=== PATIENT | female | born 1980 | race Two or more races ===

== ENCOUNTER 2016-05-01 20:11 | Emergency (ER) | payer MEDICAID ==
[~2016-05-01] VITALS: Ht 142.2 cm; Wt 45.4 kg
[2016-05-01] MEDS ORDERED: IV NS 0.9% 1,000 ML BAG IV ONE (21:00)
[2016-05-01] MEDS ORDERED: IV NS 0.9% 1,000 ML ONE (21:06)
[2016-05-01] MEDS ORDERED: IV SET PRIMARY 1 EA INFUS.SET MC ONE (21:06)
[2016-05-01 21:21] LABS: ANION GAP 15 (5-14); CALCIUM, SERUM 7.8 mg/dL (8.5-10.1); CARBON DIOXIDE 24 mmol/L (21-32); CHLORIDE 106 mmol/L (98-107); CREATININE 0.5 mg/dL (0.6-1.3); GFR 140 mL/min (>60); GLUCOSE 92 mg/dL (74-106); POTASSIUM 3.2 mmol/L (3.5-5.1); SODIUM SERUM 142 mmol/L (136-145); UREA NITROGEN, BLOOD 7 mg/dL (7-18)
[2016-05-01 21:24] LABS: INR 1.01 (0.87-1.13); PROTHROMBIN TIME 10.6 SECS (9.5-12.7)
[2016-05-01 21:28] LABS: ALANINE AMINOTRANSFERASE 53 U/L (12-78); ALBUMIN 3.4 g/dL (3.4-5.0); ASPARTATE AMINOTRANSFERASE 65 U/L (15-37); BILIRUBIN,DIRECT 0.2 mg/dL (0.0-0.2); BILIRUBIN,TOTAL 0.4 mg/dL (0.2-1.0); INDIRECT BILIRUBIN 0.2 mg/dL (0.0-1.1); TOTAL PROTEIN, SERUM 7.7 g/dL (6.4-8.2); TROPONIN I < 0.017 ng/mL (0.00-0.056)
[2016-05-01 21:29] LABS: BASOPHILS % (AUTO) 0.6 % (0.0-2.0); DIFF TOTAL % 100 %; EOSINOPHILS # (AUTO) 0.1 /CMM (0.0-0.7); HEMATOCRIT 25 % (33-45); HEMOGLOBIN 7.5 g/dL (11.5-14.8); LYMPHOCYTES # (AUTO) 1.8 /CMM (0.8-4.8); MEAN CORPUSCULAR HEMOGLOBIN 23 PG (26.0-33.0); MEAN CORPUSCULAR HGB CONC 31 g/dl (31.0-36.0); MEAN CORPUSCULAR VOLUME 74 fL (82-100); MONOCYTES # (AUTO) 0.7 /CMM (0.1-1.30); MONOCYTES % (AUTO) 9.8 % (2.0-12.0); NEUTROPHILS # (AUTO) 4.7 /CMM (1.8-8.9); NEUTROPHILS % (AUTO) 63.6 % (43.0-81.0); PLATELET COUNT (AUTO) 187 /CMM (150-450); RED BLOOD CELL COUNT(AUTO) 3.32 MIL/uL (4.0-5.2); WHITE BLOOD COUNT (AUTO) 7.3 K/uL (4.3-11.0)
[2016-05-01 21:55] LABS: ANISOCYTOSIS 1+; BAND % (MANUAL) 1 % (0.0-5.0); EOSINOPHILS % (MANUAL) 2 % (0-4); LYMPHOCYTES % (MANUAL) 22 % (16-48); PLATELET ESTIMATE ADEQUATE
[2016-05-01 21:56] LABS: HYPOCHROMASIA 1+
[2016-05-01] MEDS ORDERED: PANTOPRAZOLE 40 MG VIAL IV ONE (22:00)
[2016-05-01] MEDS ORDERED: WATER FOR INJECTION,STERILE 10 ML ONE (22:11)
[2016-05-01] MEDS ORDERED: PANTOPRAZOLE 40 MG VIAL ONE (22:11)
[2016-05-01] MEDS ORDERED: IV SET PRIMARY PUMP SET 1 EA INFUS.SET MC ONE (22:30)
[2016-05-01] MEDS ORDERED: Magnesium 1 GM/2 ML VIAL IV ONE (22:30)
[2016-05-01] MEDS ORDERED: Magnesium 1GM/D5W 100ML PREMIX 200 ML IV ONE (22:30)
[2016-05-01] MEDS ORDERED: POTASSIUM CHLORIDE 20 MEQ TAB.PRT.SR PO ONE (22:30)
[2016-05-02 00:54] LABS: HEMOGLOBIN 7.6 g/dL (11.5-14.8)
[2016-05-02] MEDS ORDERED: POTASSIUM CHLORIDE 20 MEQ TAB.PRT.SR PO ONE (04:41)
[2016-05-02 06:31] VITALS: BP 106/78
== END 2016-05-02 06:32 | disposition home or self-care (01) ==
LOC: ER 20:12 → TELE 22:32 → UNDOADMIN 22:32 → ER 05-02 06:32
DX: D50.0 Iron deficiency anemia secondary to blood loss (chronic) (principal); F10.129 Alcohol abuse with intoxication, unspecified; R79.1 Abnormal coagulation profile
CPT/HCPCS: 36415 ×2; 70450; 71010; 74176; 80048; 80076; 84484; 84703; 85025; 85027; 85730; 86850; 87081; 93005; 96361; 96374; 96375; 99291; A4606; C9113; G0480; J3475; J7030; Z7610

== ENCOUNTER 2016-08-26 08:04 | Emergency (ER) | payer SELFPAY ==
[~2016-08-26] VITALS: Ht 149.9 cm; Wt 37.2 kg
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
[2016-08-26] MEDS ORDERED: IV SET PRIMARY 1 EA INFUS.SET MC ONE (08:28)
[2016-08-26] MEDS ORDERED: IV NS 0.9% 1,000 ML ONE (08:28)
[2016-08-26] MEDS ORDERED: IV NS 0.9% 1,000 ML BAG IV ONE (08:30)
--- NOTE | 2016-08-26 08:37 | NUR ---
NEW IV STARTED ON RIGHT AC, 18 G. IV FLUIDS STARTED PER MD ORDERS.
[2016-08-26 08:47] LABS: BASOPHILS % (AUTO) 0.1 % (0.0-2.0); EOSINOPHILS # (AUTO) 0.1 /CMM (0.0-0.7); HEMATOCRIT 30 % (33-45); HEMOGLOBIN 9.1 g/dL (11.5-14.8); LYMPHOCYTES # (AUTO) 1.6 /CMM (0.8-4.8); LYMPHOCYTES % (AUTO) 23.1 % (20.0-44.0); MEAN CORPUSCULAR HEMOGLOBIN 24 PG (26.0-33.0); MEAN CORPUSCULAR HGB CONC 31 g/dl (31.0-36.0); MEAN CORPUSCULAR VOLUME 78 fL (82-100); MONOCYTES # (AUTO) 0.6 /CMM (0.1-1.30); MONOCYTES % (AUTO) 9.2 % (2.0-12.0); NEUTROPHILS # (AUTO) 4.5 /CMM (1.8-8.9); NEUTROPHILS % (AUTO) 66.6 % (43.0-81.0); PLATELET COUNT (AUTO) 230 /CMM (150-450); RDW COEFFICIENT OF VARIATION 19.6 (11.5-15.0); RED BLOOD CELL COUNT(AUTO) 3.84 MIL/uL (4.0-5.2); WHITE BLOOD COUNT (AUTO) 6.8 K/uL (4.3-11.0)
[2016-08-26 08:58] LABS: ALBUMIN 3.4 g/dL (3.4-5.0); BILIRUBIN,DIRECT 0.2 mg/dL (0.0-0.2); BILIRUBIN,TOTAL 0.5 mg/dL (0.2-1.0); CALCIUM, SERUM 8.4 mg/dL (8.5-10.1); CREATININE 0.4 mg/dL (0.6-1.3); POTASSIUM 3.1 mmol/L (3.5-5.1); TOTAL PROTEIN, SERUM 8.6 g/dL (6.4-8.2)
--- NOTE | 2016-08-26 09:42 | NUR ---
CT HEAD PENDING. AWAITING HCG RESULTS.
--- NOTE | 2016-08-26 14:03 | NUR ---
PT IS AWAKE, PROVIDED W/ ORAL HYDRATION. STATES WANTS TO LEAVE ED. AMBULATORY W/ STEADY GAIT. AAOX3. IVHL D/C'D. DISCHARGE HOME IN STABLE CONDITION.
[2016-08-26 14:05] VITALS: BP 118/77
== END 2016-08-26 14:05 | disposition home or self-care (01) ==
LOC: ER 08:08
DX: F10.129 Alcohol abuse with intoxication, unspecified (principal); E11.9 Type 2 diabetes mellitus without complications; R51 Headache
CPT/HCPCS: 36415; 70450-TC; 80048-TC; 80076-TC; 84703-TC; 85025-TC; A4606; J7030; Z7610

== ENCOUNTER 2016-11-05 13:44 | Emergency (ER) | payer SELFPAY ==
[~2016-11-05] VITALS: Ht 152.4 cm; Wt 40.8 kg
--- NOTE | 2016-11-05 14:14 | NUR ---
KATE BILLINGS AT BEDSIDE FOR EVAL.
--- NOTE | 2016-11-05 14:25 | NUR ---
PT UNABLE TO PROVIDE URINE SAMPLE AT THIS TIME. STATES NO POSSIBILITY OF BEING WAIVER SIGNED. RADIOLOGY AWARE.
--- NOTE | 2016-11-05 14:35 | NUR ---
PT TO RADIOLOGY FOR HEAD CT SCAN VIA [facility].
--- NOTE | 2016-11-05 15:34 | NUR ---
AMBULATORY W/ STEADY GAIT. AAOX3. STATES WANTS TO LEAVE ED. KATE BILLINGS AWARE. D/C IN STABLE CONDITION.
[2016-11-05 15:35] VITALS: BP 121/64
== END 2016-11-05 15:36 | disposition home or self-care (01) ==
LOC: ER 13:45
DX: S00.03XA Contusion of scalp, initial encounter (principal); R51 Headache; F10.10 Alcohol abuse, uncomplicated; E11.9 Type 2 diabetes mellitus without complications
CPT/HCPCS: 70450; 99284; A4606; Z7610

== ENCOUNTER 2016-11-16 17:01 | Emergency (ER) | payer SELFPAY ==
[~2016-11-16] VITALS: Ht 144.8 cm; Wt 56.7 kg
--- NOTE | 2016-11-16 17:16 | NUR ---
PT LISET FROM THE STREETS TO ER BED 16. HERE FOR ALCOHOL INTOXICATION. NO OBVIOOUS TTRAUMA NOTED. PLACED ON MONITOR. STABLE VITALS. AWAITING MD ANN.
--- NOTE | 2016-11-16 18:20 | NUR ---
PT IS SLEEPING IN BED. EASILY AROUSABLE. ON MONITOR. STABLE VITALS.
--- NOTE | 2016-11-16 20:15 | NUR ---
SLEEPING. ON MONITOR. STABLE VITALS.
--- NOTE | 2016-11-16 22:02 | NUR ---
PT IS AWAKE. AMBULATORY W/ STEADY GAIT. WAS GIVEN ORAL FLUIDS. D/C IN STABLE CONDITION.
[2016-11-16 22:04] VITALS: BP 115/60
== END 2016-11-16 22:04 | disposition home or self-care (01) ==
LOC: ER 17:02
DX: F10.10 Alcohol abuse, uncomplicated (principal); R79.89 Other specified abnormal findings of blood chemistry; E11.9 Type 2 diabetes mellitus without complications
CPT/HCPCS: 82962-TC; A4606; Z7610

== ENCOUNTER 2017-03-04 13:06 | Emergency (ER) | payer SELFPAY ==
[~2017-03-04] VITALS: Ht 152.4 cm; Wt 47.6 kg
[2017-03-04 13:14] VITALS: BP 141/74
--- NOTE | 2017-03-04 16:04 | NUR ---
PT AWAKE. AMBULATORY W/ STEADY GAIT. MEAL TRAY PROVIDED. D/C IN STABLE CONDITION.
== END 2017-03-04 16:06 | disposition home or self-care (01) ==
LOC: ER 13:08
DX: S80.02XA Contusion of left knee, initial encounter (principal); E11.9 Type 2 diabetes mellitus without complications; F10.10 Alcohol abuse, uncomplicated; Y04.2XXA Assault by strike against or bumped into by another person, initial encounter; Y93.89 Activity, other specified; Y92.89 Other specified places as the place of occurrence of the external cause; Y99.8 Other external cause status
CPT/HCPCS: 73562; A4606; Z7610

== ENCOUNTER 2018-01-19 12:40 | Inpatient (IN) | payer MEDICAID ==
[~2018-01-19] VITALS: Ht 172.7 cm; Wt 40.4 kg
--- NOTE | 2018-01-19 12:45 | NUR ---
PT BIBRA C/O UPPDER ABD PAIN. PT DENIES N/V/D. PT ON MONITOR IN BED 14. WILL CONTINUE TO MONITOR.
[2018-01-19] MEDS ORDERED: ONDANSETRON HCL/PF 4 MG/2 ML VIAL IVP ONE (13:30)
[2018-01-19] MEDS ORDERED: MORPHINE SULFATE INJ 2 MG/ML DISP.SYRIN IV ONE (13:30)
[2018-01-19] MEDS ORDERED: IV NS 0.9% 1,000 ML BAG IV ONE (13:30)
[2018-01-19] MEDS ORDERED: ONDANSETRON HCL/PF 4 MG/2 ML VIAL ONE (13:33)
[2018-01-19] MEDS ORDERED: MORPHINE SULFATE INJ 4 MG/ML DISP.SYRIN ONE (13:34)
[2018-01-19 13:47] LABS: BASOPHILS # (AUTO) 0.1 /CMM (0.0-0.2); BASOPHILS % (AUTO) 1.1 % (0.0-2.0); EOSINOPHILS % (AUTO) 1.2 % (0.0-6.0); HEMATOCRIT 25 % (33-45); HEMOGLOBIN 8.2 g/dL (11.5-14.8); LYMPHOCYTES % (AUTO) 17.1 % (20.0-44.0); MEAN CORPUSCULAR HGB CONC 33 g/dl (31.0-36.0); MEAN CORPUSCULAR VOLUME 107 fL (82-100); MONOCYTES # (AUTO) 0.4 /CMM (0.1-1.30); MONOCYTES % (AUTO) 6.5 % (2.0-12.0); NEUTROPHILS # (AUTO) 4.4 /CMM (1.8-8.9); NEUTROPHILS % (AUTO) 74.1 % (43.0-81.0); PLATELET COUNT (AUTO) 100 /CMM (150-450); RED BLOOD CELL COUNT(AUTO) 2.34 MIL/uL (4.0-5.2)
--- NOTE | 2018-01-19 14:32 | NUR ---
URINE COLLECTED AND SENT TO LAB
[2018-01-19 14:49] LABS: CREATININE 0.6 mg/dL (0.6-1.3); POTASSIUM 3.1 mmol/L (3.5-5.1)
[2018-01-19 14:54] LABS: ALBUMIN 2.2 g/dL (3.4-5.0); BILIRUBIN,DIRECT 3.1 mg/dL (0.0-0.2); BILIRUBIN,TOTAL 3.8 mg/dL (0.2-1.0); TOTAL PROTEIN, SERUM 9.3 g/dL (6.4-8.2)
[2018-01-19 14:59] LABS: APPEARANCE,URINE CLEAR (CLEAR); BILIRUBIN,URINE MODERATE (NEGATIVE); BLOOD, URINE LARGE Ery/uL (NEGATIVE); COLOR,URINE YELLOW (YELLOW); KETONES,URINE NEGATIVE (NEGATIVE); LEUKOCYTE ESTERASE ,URINE NEGATIVE (NEGATIVE); NITRITE, URINE NEGATIVE (NEGATIVE); PROTEIN,URINE NEGATIVE (NEGATIVE); UGLUCOSE NEGATIVE (NEGATIVE)
[2018-01-19 15:21] LABS: BACTERIA,URINE Rare /HPF (None Seen); RBC,URINE 21-50 /HPF (0-2); SQUAMOUS EPITHELIAL CELL,UR Few /HPF (None Seen)
--- NOTE | 2018-01-19 15:43 | NUR ---
PT RETURNED FROM CT VIA GURNEY. PT TOLERATED WELL. NAD NOTED. PT RESTING IN BED COMFORTABLY.
[2018-01-19 16:00] VITALS: BP 116/75
[2018-01-19] MEDS ORDERED: POTASSIUM CHLORIDE 20 MEQ TAB.PRT.SR PO ONE ×2 (16:00→16:10)
--- NOTE | 2018-01-19 16:16 | NUR ---
ADMIT TO ROOM 316-1 MED SURG DX ABDOMINAL PAIN.
--- NOTE | 2018-01-19 16:35 | NUR ---
REPORT GIVEN TO STEPHENIE STODDARD FOR CONT OF CARE.
--- NOTE | 2018-01-19 17:30 | NUR ---
MS RN NOTE PT ARRIVED TO FLOOR IN STABLE CONDITION WITH NO SIGNS OF SOB OR DISTRESS. PT A&0 X2-3. SPEAKS AND UNDERSTANDS LATVIAN. DENIES PAIN. ASSISTED TO BED, BED LOWEST POSITION, UPPER BED RAILS UP, WITH CALL LIGHT WITHIN REACH. VITALS TAKEN AND RECORDED. KEPT COMFORTABLE, WILL REPORT TO NEXT SHIFT.
[2018-01-19] MEDS ORDERED: Z GUARD REMEDY 2 OZ OINT TP PRN (18:00)
[2018-01-19] MEDS ORDERED: ACETAMINOPHEN 325 MG TABLET PO PRN (18:00)
[2018-01-19] MEDS ORDERED: MAG HYDROX/AL HYDROX/SIMETH 30 ML UDC PO PRN (18:00)
[2018-01-19] MEDS ORDERED: MAGNESIUM HYDROXIDE 30 ML UDC PO PRN (18:00)
[2018-01-19] MEDS ORDERED: HYDROCODONE/APAP 5/325MG 1 EACH TABLET PO PRN (18:00)
[2018-01-19] MEDS ORDERED: ONDANSETRON HCL/PF 4 MG/2 ML VIAL IVP PRN (18:00)
[2018-01-19] MEDS ORDERED: ZOLPIDEM TARTRATE 5 MG TABLET PO PRN (18:00)
[2018-01-19] MEDS: IV D5/0.45 NACL 1,000 ML IV PRN (19:00)
--- NOTE | 2018-01-19 19:30 | NUR ---
RECEIVED PATIENT IN BED WITH EYES CLOSED, EASILY AROUSABLE. AO X 2, ABLE TO MAKE NEEDS KNOWN. NO ACUTE DISTRESS NOTED. NO SIGNS OF PAIN NOTED. IV SITE PATENT, INTACT; IVF INFUSING ORDERED. SAFETY REMINDERS GIVEN. ON LOW BED WITH BILATERAL UPPER SIDE RAILS UP. CALL GILMAN WITHIN EASY REACH. WILL CONTINUE TO MONITOR.
[2018-01-19 20:00] VITALS: BP 112/69
--- NOTE | 2018-01-20 06:00 | NUR ---
PATIENT ASLEEP, EASILY AROUSABLE. RESPIRATIONS EVEN. NO SIGNS OF PAIN NOTED. IVF INFUSING ORDERED. NEEDS ATTENDED. KEPT CLEAN, DRY, COMFORTABLE. SAFETY PRECAUTIONS AND COMFORT MEASURES IN PLACE. WILL GIVE REPORT TO DAY SHIFT FOR CONTINUITY OF CARE.
[2018-01-20] MEDS: IV D5/0.45 NACL 1,000 ML IV PRN (07:17)
[2018-01-20 07:35] LABS: BASOPHILS % (AUTO) 0.8 % (0.0-2.0); EOSINOPHILS % (AUTO) 0.8 % (0.0-6.0); HEMATOCRIT 22 % (33-45); HEMOGLOBIN 7.4 g/dL (11.5-14.8); LYMPHOCYTES # (AUTO) 0.5 /CMM (0.8-4.8); LYMPHOCYTES % (AUTO) 9.9 % (20.0-44.0); MEAN CORPUSCULAR HGB CONC 34 g/dl (31.0-36.0); MEAN CORPUSCULAR VOLUME 106 fL (82-100); MONOCYTES # (AUTO) 0.4 /CMM (0.1-1.30); MONOCYTES % (AUTO) 7.1 % (2.0-12.0); NEUTROPHILS # (AUTO) 4.5 /CMM (1.8-8.9); NEUTROPHILS % (AUTO) 81.4 % (43.0-81.0); RED BLOOD CELL COUNT(AUTO) 2.05 MIL/uL (4.0-5.2); WHITE BLOOD COUNT (AUTO) 5.5 K/uL (4.3-11.0)
[2018-01-20 07:46] LABS: PLATELET COUNT (AUTO) 67 /CMM (150-450)
[2018-01-20 07:49] LABS: ALBUMIN 1.9 g/dL (3.4-5.0); BILIRUBIN,TOTAL 4.1 mg/dL (0.2-1.0); CREATININE 0.4 mg/dL (0.6-1.3); PHOSPHORUS 2.5 mg/dL (2.5-4.9); POTASSIUM 3.6 mmol/L (3.5-5.1); TOTAL PROTEIN, SERUM 8.1 g/dL (6.4-8.2)
[2018-01-20 07:53] LABS: THYROID STIMULATING HORMONE 0.829 uIU/mL (0.358-3.74)
[2018-01-20 07:58] LABS: MAGNESIUM 1.1 mg/dL (1.8-2.4)
[2018-01-20 08:00] VITALS: BP 111/76
--- NOTE | 2018-01-20 08:00 | NUR ---
m/s occupational physician: notes dr. beaulieu notified, left message re: abnormal labs (plt 67. and mg level=1.1). pt made aware. no bleeding noted at this time. pt remains npo. pt hx: alcoholism as stated.
[2018-01-20 08:06] VITALS: BP 116/76
--- NOTE | 2018-01-20 08:45 | NUR ---
m/s merchandising assistant: notes dr. beaulieu called back with order to give 3 gm iv magnesium, order read back and carried out.
[2018-01-20] MEDS: Magnesium 1GM/D5W 100ML PREMIX 100 ML IV SCH ×3 (09:05→11:12)
[2018-01-20 10:16] LABS: EOSINOPHILS % (MANUAL) 1 % (0-4); LYMPHOCYTES % (MANUAL) 16 % (16-48); MONOCYTES % (MANUAL) 3 % (0-11.0); NEUTROPHILS % (MANUAL) 80 (42-76)
--- NOTE | 2018-01-20 10:43 | NUR ---
m/s clothes marker: notes dr. beaulieu here and aware of her am labs with verbal order to start feeding her with regular diet. order read back and carried out and acknowledged. pt made aware.
--- NOTE | 2018-01-20 11:00 | NUR ---
m/s integration architect: md visit seen and examined by dr. beaulieu at this time and updated plan of care. pt denies any abdominal discomfort. for social sciences department chair consult, pt aware. instructed to call for assistance. will continue to monitor.
--- NOTE | 2018-01-20 11:05 | NUR ---
Social service consult requested by caseworker intake Kaye Stein for homelessness and alcohol use. Pt. is a 37 year old female who was admitted to [facility] for abdominal pain. YUDELKA met with pt. bedside. Pt. is alert and oriented x 4. SW is familiar with the pt. from a previous admission on 01/04/18. Pt. used the name "Loretta Ayala" on the previous admission. Pt. resides in an enc[place] [address]. Pt. has been homeless since age 14. Pt. states she drinks approximately seven 40 ounce of beers per day and at times drinks vodka as well. Pt. has no source of income. 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 YUDELKA encouraged pt. to attend an alcohol rehab program, however pt. declined. Pt. stated she has attended many. YUDELKA offered pt. homeless [facility] resources and placement, but pt. declined stating she will go back to her encamp[place] [address] [place] YUDELKA updated pt's STEPHENIE Oscar regarding pt's discharge plan. YUDELKA also informed STEPHENIE Oscar that SW left the Homeless Patient Waiver Form in pt's chart and have pt. sign upon discharge. No other social service needs are requested at this time. SW is available, if needed.
--- NOTE | 2018-01-20 11:25 | NUR ---
m/s sales development coordinator: social service consult seen by belinda and pt refuses resources and halfway once stable for discharge. p.t. eval ordered per social service. pt aware. will continue to monitor.
--- NOTE | 2018-01-20 12:55 | NUR ---
m/s residence manager: notes received order from dr. beaulieu to discharge pt with instruction of director of medical staff services for dc planning. pt still refuses resources.
--- NOTE | 2018-01-20 14:00 | NUR ---
m/s information director: notes pt still refuses resources and skilled nursing. pt signed the homeless pt waiver form and discharge instructions given with serbian staff translating, pt speaks a little emirati. pt verbalized understanding. h/l removed with tip intact with no swelling, no redness, and no bleeding noted.
--- NOTE | 2018-01-20 14:10 | NUR ---
m/s electronic tester: p.t. eval p.t eval completed, pt safe to go home without device per therapist.
--- NOTE | 2018-01-20 14:20 | NUR ---
m/s faceter: discharged discharged home via ambulatory with all d'c papers and belongings in stable condition.
== END 2018-01-20 14:20 | disposition home or self-care (01) | DRG 282 ==
LOC: ER 12:41 → MED 16:00
DX: K85.90 Acute pancreatitis without necrosis or infection, unspecified (principal); E43 Unspecified severe protein-calorie malnutrition; D69.6 Thrombocytopenia, unspecified; K74.60 Unspecified cirrhosis of liver; E86.0 Dehydration; E11.9 Type 2 diabetes mellitus without complications; D53.9 Nutritional anemia, unspecified; E87.6 Hypokalemia; F10.10 Alcohol abuse, uncomplicated; F10.14 Alcohol abuse with alcohol-induced mood disorder; Y90.9 Presence of alcohol in blood, level not specified; Z59.0 Homelessness
CPT/HCPCS: 36415; 76705-TC; 76856-TC; 80048-TC; 80053-TC; 80061-TC; 80076-TC; 81000-TC; 83690-TC; 83735-TC; 84100-TC; 84443-TC; 84703-TC; 85025-TC; 87081-TC; A4606; G0378; J2270; J2405; J3475; J3490; J7030; Z7610

== ENCOUNTER 2018-02-02 16:13 | Emergency (ER) | payer MEDICAID ==
[~2018-02-02] VITALS: Ht 152.4 cm; Wt 41.7 kg
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
--- NOTE | 2018-02-02 16:29 | NUR ---
CALLED [facility] SPOKE TO ROTOR BLADE INSTALLER [phone]. AN AVAILABLE UNIT WILL BE SENT.
[2018-02-02 18:34] VITALS: BP 110/63
--- NOTE | 2018-02-02 18:58 | NUR ---
Patient discharged to home in stable condition. Written and verbal after care instructions given. Patient verbalizes understanding of instruction.
== END 2018-02-02 18:59 | disposition home or self-care (01) ==
LOC: ER 16:15
DX: S09.8XXA Other specified injuries of head, initial encounter (principal); R51 Headache; F10.20 Alcohol dependence, uncomplicated; G89.29 Other chronic pain; E11.9 Type 2 diabetes mellitus without complications; Y90.9 Presence of alcohol in blood, level not specified; Y04.8XXA Assault by other bodily force, initial encounter; Y93.89 Activity, other specified; Y92.89 Other specified places as the place of occurrence of the external cause; Y99.8 Other external cause status
CPT/HCPCS: 70450-TC; 84703-TC; A4606; Z7610

== ENCOUNTER 2018-10-13 10:15 | Inpatient (IN) | payer MEDICAID ==
[~2018-10-13] VITALS: Ht 157.5 cm; Wt 42.8 kg
[2018-10-13] MEDS ORDERED: IV NS 0.9% 500 ML BAG IV ONE (10:30)
[2018-10-13] MEDS ORDERED: ONDANSETRON HCL/PF 4 MG/2 ML VIAL IVP ONE (10:30)
[2018-10-13] MEDS ORDERED: ONDANSETRON HCL/PF 4 MG/2 ML VIAL ONE (10:42)
[2018-10-13 10:49] LABS: BASOPHILS % (AUTO) 0.5 % (0.0-2.0); EOSINOPHILS % (AUTO) 0.3 % (0.0-6.0); HEMATOCRIT 23 % (33-45); HEMOGLOBIN 7.7 g/dL (11.5-14.8); LYMPHOCYTES # (AUTO) 0.8 /CMM (0.8-4.8); LYMPHOCYTES % (AUTO) 9.1 % (20.0-44.0); MEAN CORPUSCULAR HGB CONC 34 g/dl (31.0-36.0); MEAN CORPUSCULAR VOLUME 105 fL (82-100); MONOCYTES # (AUTO) 0.4 /CMM (0.1-1.30); MONOCYTES % (AUTO) 4.8 % (2.0-12.0); NEUTROPHILS # (AUTO) 7.1 /CMM (1.8-8.9); NEUTROPHILS % (AUTO) 85.3 % (43.0-81.0); PLATELET COUNT (AUTO) 62 /CMM (150-450); RED BLOOD CELL COUNT(AUTO) 2.15 MIL/uL (4.0-5.2); WHITE BLOOD COUNT (AUTO) 8.4 K/uL (4.3-11.0)
[2018-10-13 11:02] LABS: ALBUMIN 1.7 g/dL (3.4-5.0); BILIRUBIN,DIRECT 18.3 mg/dL (0.0-0.2); BILIRUBIN,TOTAL 24.8 mg/dL (0.2-1.0); CALCIUM, SERUM 7.4 mg/dL (8.5-10.1); CREATININE 0.4 mg/dL (0.6-1.3); TOTAL PROTEIN, SERUM 7.8 g/dL (6.4-8.2)
[2018-10-13 11:14] LABS: POTASSIUM 2.8 mmol/L (3.5-5.1)
--- NOTE | 2018-10-13 11:14 | NUR ---
PT ENDORSED TO ME BY STEPHENIE HARVEY. CURRENTLY RESTING COMFORTABLY IN BED. COMPLAINS OF PAIN 11/30. AWAITING ULTRASOUND. VSS. WILL CONT TO MONITOR ACCORDINGLY
[2018-10-13 11:38] LABS: LYMPHOCYTES % (MANUAL) 8 % (16-48); MONOCYTES % (MANUAL) 5 % (0-11.0); NEUTROPHILS % (MANUAL) 87 (42-76)
--- NOTE | 2018-10-13 11:58 | NUR ---
CALLED NURSING SUP FOR BED
--- NOTE | 2018-10-13 12:07 | NUR ---
CALLED [facility], PAGED JOSEP
--- NOTE | 2018-10-13 12:21 | NUR ---
PT ASLEEP IN BED. EASILY AROUSED. VSS. WILL CONT TO MONITOR.
--- NOTE | 2018-10-13 12:24 | NUR ---
311-1 [facility]
[2018-10-13] MEDS ORDERED: POTASSIUM CHLORIDE 20 MEQ TAB.PRT.SR PO ONE ×2 (12:28→12:30)
--- NOTE | 2018-10-13 12:50 | NUR ---
REPORT GIVEN TO STEPHENIE SULLIVAN FOR 311-1 MS, DR CAR, FOR RENAL FAILURE AND ASCITES Addendum: 10/13/18 at 1309 by RENAUWONO LIVER FAILURE, NOT RENAL FAILURE
[2018-10-13] MEDS ORDERED: ACETAMINOPHEN 325 MG TABLET PO PRN (13:00)
[2018-10-13] MEDS ORDERED: Z GUARD REMEDY 2 OZ OINT TP PRN (13:00)
[2018-10-13] MEDS ORDERED: ONDANSETRON HCL/PF 4 MG/2 ML VIAL IVP PRN (13:00)
[2018-10-13] MEDS ORDERED: MAGNESIUM HYDROXIDE 30 ML UDC PO PRN (13:00)
[2018-10-13] MEDS ORDERED: MAG HYDROX/AL HYDROX/SIMETH 30 ML UDC PO PRN (13:00)
[2018-10-13] MEDS ORDERED: LORAZEPAM INJ 2 MG/ML VIAL IV PRN (13:00)
--- NOTE | 2018-10-13 13:08 | NUR ---
PT TRANSFERRED TO UNIT VIA WC
[2018-10-13 13:20] VITALS: BP 115/71
--- NOTE | 2018-10-13 13:22 | NUR ---
MS/RN PATIENT ADMITTED FROM ER IN STABLE CONDITION TRANSFERRED VIA WC ACCOMPANIED BY EMT AND RN. NO SIGNS OF ACUTE DISTRESS. NO COMPLAIN OF PAIN OR DISCOMFORT. A/O X 2-3, SOMETIMES ANSWER QUESTIONS, SOMETIMES NOT. ADMITTING DX RENAL FAILURE, ASCITES. CONTINENT OF BOWEL AND BLADDER. AMBULATES WITH STANDBY ASSIST. ALL NEEDS ATTENDED TO AT THIS TIME. CALL LIGHT WITHIN REACH. WILL CONTINUE TO MONITOR TO ENSURE SAFETY. DR CAR ADMITTING MD AWARE FOR ADMISSION ORDERS.
[2018-10-13] MEDS: IV NS 0.9% 1,000 ML IV PRN (15:15)
[2018-10-13] MEDS: THIAMINE HCL 100 MG TABLET PO SCH (15:16)
[2018-10-13] MEDS: FOLIC ACID 1 MG TABLET PO SCH (15:16)
[2018-10-13 16:09] VITALS: BP 102/66
--- NOTE | 2018-10-13 18:15 | NUR ---
MS/RN CLOSING NOTE PATIENT IN BED IN STABLE CONDITION. A/O X 2-3. NO SIGNS OF ACUTE DISTRESS.NO COMPLAIN OF PAIN OR DISCOMFORT. ON TELE MONITOR NOTED WITH SINUS TACHY WITH RATE OF 109. ALL NEEDS ATTENDED TO. CALL LIGHT WITHIN REACH. WILL ENDORSE TO NEXT SHIFT FOR CONTINUITY OF CARE.
--- NOTE | 2018-10-13 19:41 | NUR ---
TELE/RN OPENING NOTES RECEIVED PATIENT IN BED, RESTING COMFORTABLY IN BED, ASLEEP, RESPIRATIONS EVEN AND UNLABORED, SKIN WARM TO TOUCH, IV FLUIDS RUNNING AT 75 ML/HR, IV OR RIGHT AC GAUGE 20 W/ NO S/S OF INFILTRATION. PATIENT WEAK AND FRAIL LOOKING, REQUIRE MONITORING AND ASSISTANCE WITH ADLS, NOTICEABLE YELLOWISH COLOR AND WILL CHECK PAINM AND NEEDED ATIVAN. TELE MONITORING AT ST 120 WILL MONITOR.
[2018-10-13 20:00] VITALS: BP 107/71
--- NOTE | 2018-10-13 21:58 | NUR ---
TELE/RN NOTES PATIENT WITH MAGNESIUM LEVEL RESULT OF 1.5 MD ROBIN MADE AWARE WITH ORDER TO REPLACE IV MAGNESIUM 2GM AND MONITOR LABS IN AM RESULT, ORDER RECEIVED AND WILL CARRY OUT.
[2018-10-13] MEDS ORDERED: Magnesium 1GM/D5W 100ML PREMIX PIGGYBACK IV ONE (22:00)
[2018-10-14] VITALS: BP 111/70
[2018-10-14 04:00] VITALS: BP 116/79
[2018-10-14] MEDS: IV NS 0.9% 1,000 ML IV PRN (04:20)
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
--- NOTE | 2018-10-14 06:00 | NUR ---
TELE/RN NOTES PATIENT ABLE TO SLEEP DURING THE NIGHT. RESPIRATIONS EVEN AND UNLABORED. ON TELE MONITORING WITH SINUS TACHY AT 110 TO 120. SKIN WARM TO TOUCH, ASSISTED TO BATHROOM, CAN REPOSITION SELF WITH ASSISTANCE. REQUIRE ASSISTANCE AND REMINDER FOR PROPER ORIENTATION. WILL MONITOR. BED LOCKED, CALL LIGHTS WITHIN REACH, IV FLUIDS RUNNING AT 75 ML/HR, IV SITE ON RIGHT W/ NO S/S OF INFILTRATION, MONITORED FOR ANY CHANGES. REPLACED MAGNESIUM DUE TO LOW LEVEL PERM MD ORDER. BED LOCKED, CALL LIGHTS WITHIN REACH WILL ENDORSE TO AM RN FOR RICHARD.
[2018-10-14 06:51] LABS: BASOPHILS # (AUTO) 0.1 /CMM (0.0-0.2); BASOPHILS % (AUTO) 0.7 % (0.0-2.0); EOSINOPHILS % (AUTO) 0.8 % (0.0-6.0); HEMATOCRIT 22 % (33-45); HEMOGLOBIN 7.6 g/dL (11.5-14.8); LYMPHOCYTES # (AUTO) 0.7 /CMM (0.8-4.8); LYMPHOCYTES % (AUTO) 8.8 % (20.0-44.0); MEAN CORPUSCULAR HGB CONC 34 g/dl (31.0-36.0); MEAN CORPUSCULAR VOLUME 107 fL (82-100); MONOCYTES # (AUTO) 0.5 /CMM (0.1-1.30); MONOCYTES % (AUTO) 6.2 % (2.0-12.0); NEUTROPHILS # (AUTO) 6.8 /CMM (1.8-8.9); NEUTROPHILS % (AUTO) 83.5 % (43.0-81.0); PLATELET COUNT (AUTO) 57 /CMM (150-450); RED BLOOD CELL COUNT(AUTO) 2.09 MIL/uL (4.0-5.2); WHITE BLOOD COUNT (AUTO) 8.2 K/uL (4.3-11.0)
[2018-10-14 07:25] LABS: ALBUMIN 1.5 g/dL (3.4-5.0); BILIRUBIN,DIRECT 18.1 mg/dL (0.0-0.2); BILIRUBIN,TOTAL 25.7 mg/dL (0.2-1.0); CALCIUM, SERUM 7.2 mg/dL (8.5-10.1); CREATININE 0.5 mg/dL (0.6-1.3); PHOSPHORUS 2.8 mg/dL (2.5-4.9); TOTAL PROTEIN, SERUM 7.3 g/dL (6.4-8.2)
--- NOTE | 2018-10-14 07:30 | NUR ---
TELE/RN NOTE THE PATIENT IS RECEIVED IN BED. PATIENT AWAKE, ALERT AND ORIENTED TO SELF AND SITUATION. DENIES PAIN. RESPIRATION REGULAR AND UNLABORED. DENIES SOB. PATIENT IS IN ROOM AIR. IN NO APPARENT DISTRESS. RAC G 20 PATENT AND NORMAL SALINE INFUSING AT 75ML/HR AND NO S/S INFILTRATION NOTED. BED LOW AND LOCKED. SIDE RAILS UP X3. CALL LIGHT WITHIN REACH. WILL CONTINUE TO MONITOR.
[2018-10-14 07:36] LABS: POTASSIUM 2.6 mmol/L (3.5-5.1)
[2018-10-14 08:00] VITALS: BP 125/75
[2018-10-14] MEDS: THIAMINE HCL 100 MG TABLET PO SCH (08:25)
[2018-10-14] MEDS: FOLIC ACID 1 MG TABLET PO SCH (08:25)
[2018-10-14 09:17] LABS: LYMPHOCYTES % (MANUAL) 6 % (16-48); MONOCYTES % (MANUAL) 10 % (0-11.0); NEUTROPHILS % (MANUAL) 84 (42-76)
[2018-10-14] MEDS ORDERED: POTASSIUM CHLORIDE 20 MEQ TAB.PRT.SR PO ONE (10:00)
[2018-10-14] MEDS: POTASSIUM CL. PREMIX PERIPHER. 50 ML IV SCH ×4 (10:11→15:15)
[2018-10-14 16:00] VITALS: BP 108/65
--- NOTE | 2018-10-14 18:21 | NUR ---
MS/RN NOTE THE PATIENT ALERT AND ORIENTED X2. ABLE TO MAKE NEEDS KNOWN VERBALLY. IN ROOM AIR AND SATURATION IS AT 98%. DENIES SOB. RESPIRATION REGULAR AND UNLABORED. DENIES PAIN. THE PATIENT IN STABLE CONDITION RAC G 20 PATENT AND SALINE LOCKED. BED LOW AND LOCKED. SIDE RAILS UP X3 CALL LIGHT WITHIN REACH. WILL ENDORSE TO FLIGHT OPERATIONS DISPATCH CLERK.
--- NOTE | 2018-10-14 19:20 | NUR ---
RN OPENING NOTES RECEIVED PATIENT AWAKE, RESTING COMFORTABLY IN BED. PATIENT IS A/O X2. ON ROOM AIR, NO SIGNS OF RESPIRATORY DISTRESS, DENIES SHORTNESS OF BREATH. IV SITE: RAC #20 S/L., PATENT, INTACT, FLUSHED. PATIENT DENIES PAIN AT THIS TIME. SAFETY PRECAUTIONS IMPLEMENTED; CALL LIGHT WITHIN REACH, BED LOWEST POSITION, BED LOCKED, SIDE RAILS UP X3. WILL CONTINUE TO MONITOR PATIENT.
[2018-10-14 20:00] VITALS: BP 97/59
[2018-10-14 20:01] VITALS: BP 97/59
--- NOTE | 2018-10-15 06:49 | NUR ---
RN CLOSING NOTES PATIENT IS CURRENTLY ASLEEP, EASILY AROUSABLE. RESPIRATIONS EVEN AND UNLABORED, NO SIGNS OF SOB, NO SIGNS OF RESPIRATORY DISTRESS. IV SITE RAC #20G REMAINS PATENT, INTACT, FLUSHED, NO S/S OF INFILTRATION. SAFETY PRECAUTIONS IMPLEMENTED; CALL LIGHT WITHIN REACH, BED LOWEST POSITION, BED LOCKED, SIDE RAILS UP X2. WILL ENDORSE TO DAY NURSE FOR CONTINUITY OF CARE.
[2018-10-15] MEDS: FOLIC ACID 1 MG TABLET PO SCH (09:29)
[2018-10-15] MEDS: THIAMINE HCL 100 MG TABLET PO SCH (09:29)
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
== END 2018-10-15 13:27 | disposition home or self-care (01) | DRG 280 ==
LOC: ER 10:17 → MED 12:48 → TELE 16:25 → MED 10-14 10:47
PROVIDERS: ADMIT Internal Medicine; ATTEND Internal Medicine
DX: K70.31 Alcoholic cirrhosis of liver with ascites (principal); E43 Unspecified severe protein-calorie malnutrition; D69.6 Thrombocytopenia, unspecified; K72.90 Hepatic failure, unspecified without coma; K86.1 Other chronic pancreatitis; E11.9 Type 2 diabetes mellitus without complications; D53.9 Nutritional anemia, unspecified; E87.6 Hypokalemia; Z59.0 Homelessness; F10.10 Alcohol abuse, uncomplicated
CPT/HCPCS: 36415; 80048-TC; 80076-TC; 83690-TC; 83735-TC; 84100-TC; 84132-TC; 85025-TC; 85730-TC; 87081-TC; G0378; J2060; J2405; J3475; J3480; J7030; J7040